=== PATIENT | male | born 1965 | race Caucasian/White ===

== ENCOUNTER 2022-03-17 07:17 | Outpatient (CLI) | payer OTHER, SELFPAY ==
[2022-03-17 13:48] LABS: Chloride* 98 mmol/L (96-114); Potassium* 4.6 mmol/L (3.6-5.1); Sodium* 136 mmol/L (135-149)
[2022-03-17 13:51] LABS: Carbon Dioxide* 29 mmol/L (20-32); Creatinine* 1.1 mg/dL (0.5-1.5); Estimated Glomerular Filt Rate 79 ml/min
[2022-03-17 13:52] LABS: Blood Urea Nitrogen* 15 mg/dL (7-30); Calcium* 8.7 mg/dL (8.4-10.6); Glucose* 216 mg/dL (60-115); Uric Acid* 6.6 mg/dL (2.2-8.4)
== END 2022-03-17 07:18 | disposition home or self-care (01) ==
PROVIDERS: Visit Provider Family Medicine
DX: M10.9 Gout, unspecified (principal); R73.9 Hyperglycemia, unspecified
CPT/HCPCS: 80048; 84550

== ENCOUNTER 2023-05-19 08:08 | Outpatient (CLI) | payer OTHER, SELFPAY | END 2023-05-19 08:09 | disposition home or self-care (01) | LOC: NFLDREF 05-21 12:24 | PROVIDERS: PCP Physician Assistant Medical; Referring Provider Physician Assistant Medical; Visit Provider Physician Assistant Medical | DX: Z00.00 Encounter for general adult medical examination without abnormal findings (principal); R04.0 Epistaxis; E11.9 Type 2 diabetes mellitus without complications; I10 Essential (primary) hypertension; M10.9 Gout, unspecified; R73.03 Prediabetes; Z12.5 Encounter for screening for malignant neoplasm of prostate | CPT/HCPCS: 80053; 80061; 82043; 82570; 84153; 84550 ==